=== PATIENT | female | born 1945 | race Caucasian/White ===

== ENCOUNTER 2017-05-14 11:59 | Emergency (ER) | payer OTHER ==
[~2017-05-14] VITALS: Ht 160 cm; Wt 51.3 kg
[~2017-05-14 11:59] MED LIST: ADULT LOW DOSE81 M1 PO; ALBUTEROL2.5 MG/3 M IH; AMBIEN10 MG PO; ASPERCREME 4% TP; ASPIR-LOW81 MG PO; ASPIRIN81 M2 PO; BESIVANCE5 ML RIGHT EYE; BYSTOLIC10 MG PO; BYSTOLIC20 MG PO; CEFTIN500 MG PO; CENTRUM COMPLE1 EACH PO; CENTRUM SILVER1 EAC3 PO; CIPRO500 MG PO; CIPROFLOXACIN500 M1 PO; CLARITIN-D 121 EACH PO; COLACE100 MG PO; DAILY VITAMIN1 EAC4 PO; DILAUDID2 MG PO; DILAUDID4 MG PO; DULCOLAX10 MG PR; DUONEB 2.5-0.5 M3 ML AEROSOL; DUONEB 2.5-0.5 M3 ML IH; FERROUS SULFAT325 MG PO; FLAGYL500 MG PO; FLEET ENEMA-AD118 ML PR; FOLIC ACID0.4 MG PO; FUROSEMIDE40 MG PO; IRON325 M1 PO; IRON325 MG PO; LEVAQUIN500 MG PO; LEVOFLOXACIN250 MG PO; LEVOFLOXACIN500 MG PO; LEXAPRO10 MG PO; LO-DOSE ASPIRIN81 M2 PO; LOMOTIL TABLET1 EACH PO; LOVENOX40 MG/0.4 SC; LYRICA100 MG PO; LYRICA50 MG PO; METRONIDAZOLE500 MG PO; MILK OF MAGN PO; MORPHINE SULFAT15 M1 PO; NASACORT10.8 ML BOTH NARES; OMNIPRED10 ML RIGHT EYE; OXYCONTIN20 MG PO; PERCOCET 5/31 TABLET PO; PLAVIX75 MG PO; PLETAL100 MG PO; PREDNISONE10 MG PO; PROLENSA1.6 ML RIGHT EYE; PROMETHAZINE HC25 MG PR; PROTONIX40 MG PO; PROVENTIL,2.5 MG/3 M IH; REQUIP1 MG PO; REQUIP2 MG PO; SENNA PLUS TAB1 EACH PO; SILVADENE20 GM TP; SPIRIVA RESPIMAT4 GM IH; SPIRIVA1 INHALATI IH; SPIRONOLACTONE25 MG PO; Silvadene,SSD,Therma TP; TYLENOL REGULA325 MG PO; VITAMIN B12 100MCG PO; ZOLPIDEM TARTRA10 MG PO; [UNRECOGNIZED DRUG - OTHER]
[2017-05-14 14:26] LABS: ADD MIUA? YES; BILIRUBIN NEGATIVE; BLOOD SMALL; COLOR YELLOW ((YELLOW)); GLUCOSE (STRIP) NEGATIVE; KETONES NEGATIVE; LEUKOCYTES LARGE; NITRITE NEGATIVE; PROTEIN (STRIP) NEGATIVE; UROBILINOGEN 0.2 MG/DL (0.2-1.0)
[2017-05-14 14:35] LABS: BACTERIA NONE SEEN /HPF; EPITHELIAL CELLS RARE /HPF; MUCUS TRACE /LPF; UCUL ADDED? YES; WHITE BLOOD CELLS TNTC /HPF (0-5)
[2017-05-14 15:15] LABS: HEMATOCRIT 30.3 % (36.0-46.0); MCH 25.6 PG (29.0-34.0); MCV 79.9 FL (83-99); MEAN PLAT.VOLUME 8.8 uM^3 (9.5-12.4); PLATELET COUNT 513 K/uL (156-360); RBC DIS.WIDTH-CV 17.2 % (11.8-14.6); RBC DIS.WIDTH-SD 50.2 % (39-53); RED BLOOD COUNT 3.79 M/uL (3.80-5.20); WHITE BLOOD COUNT 11.1 K/uL (4.1-10.2)
[2017-05-14 15:26] LABS: CHLORIDE 106 mEq/L (99-109); POTASSIUM 3.8 mEq/L (3.7-5.4); SODIUM 137 mEq/L (136-147)
[2017-05-14 15:28] LABS: GLUCOSE 79 mg/dL (70-99)
[2017-05-14 15:29] LABS: ANION GAP 10 MEQ/L (2-14)
[2017-05-14 15:30] LABS: TOTAL BILIRUBIN 0.3 mg/dL (0.0-1.0)
[2017-05-14 15:31] LABS: ALKALINE PHOSPHATASE 86 IU/L (3-129)
[2017-05-14 15:32] LABS: GFR ESTIMATE (CALCULATED) > 59 mL/min/
[2017-05-14 15:33] LABS: UREA NITROGEN (BUN) 17 mg/dL (9-23)
[2017-05-14] MEDS ORDERED: KEFLEX500 MG PO (16:25)
[2017-05-14] MEDS ORDERED: PYRIDIUM200 MG PO (16:25)
[2017-05-14 18:11] VITALS: BP 120/66
== END 2017-05-14 18:13 | disposition home or self-care (01) ==
LOC: EME 11:59
PROVIDERS: Nurse Practitioner Family
DX: N39.0 Urinary tract infection, site not specified (principal); D72.829 Elevated white blood cell count, unspecified; I10 Essential (primary) hypertension; E03.9 Hypothyroidism, unspecified; J44.9 Chronic obstructive pulmonary disease, unspecified; E11.9 Type 2 diabetes mellitus without complications; K21.9 Gastro-esophageal reflux disease without esophagitis; Z96.653 Presence of artificial knee joint, bilateral; Z88.1 Allergy status to other antibiotic agents; Z88.2 Allergy status to sulfonamides; Z87.891 Personal history of nicotine dependence
CPT/HCPCS: 74177; 80053; 81003; 85027; 99281; 99285; J0696; J1885; J7050

== ENCOUNTER 2017-09-10 12:22 | Emergency (ER) | payer OTHER ==
[~2017-09-10] VITALS: Ht 160 cm; Wt 49.1 kg
[~2017-09-10 12:22] MED LIST changes: +KEFLEX500 MG PO; +PYRIDIUM200 MG PO
[2017-09-10 13:19] LABS: HEMATOCRIT 31.2 % (36.0-46.0); MCH 25.7 PG (29.0-34.0); MCHC 32.1 G/DL (30.0-36.0); MCV 80.2 FL (83-99); MEAN PLAT.VOLUME 8.8 uM^3 (9.5-12.4); PLATELET COUNT 439 K/uL (156-360); RBC DIS.WIDTH-CV 17.2 % (11.8-14.6); RBC DIS.WIDTH-SD 49.7 % (39-53); RED BLOOD COUNT 3.89 M/uL (3.80-5.20); WHITE BLOOD COUNT 20.1 K/uL (4.1-10.2)
[2017-09-10 13:41] LABS: CHLORIDE 107 mEq/L (99-109); POTASSIUM 4.5 mEq/L (3.7-5.4); SODIUM 139 mEq/L (136-147)
[2017-09-10 13:42] LABS: GLUCOSE 85 mg/dL (70-99)
[2017-09-10 13:44] LABS: ANION GAP 12 MEQ/L (2-14)
[2017-09-10 13:46] LABS: GFR ESTIMATE (CALCULATED) 58 mL/min/
[2017-09-10 13:47] LABS: UREA NITROGEN (BUN) 28 mg/dL (9-23)
[2017-09-10 13:53] LABS: TROP-I INTERPRETATION NEGATIVE; TROPONIN-I < 0.01 ng/mL (0.0-0.30)
[2017-09-10] MEDS ORDERED: LORTAB 5-325 M1 EACH PO (15:16)
[2017-09-10] MEDS ORDERED: ZOFRAN4 MG PO (15:16)
[2017-09-10] MEDS ORDERED: VIBRAMYCIN100 MG PO (15:16)
[2017-09-10 15:44] VITALS: BP 111/61
[2017-09-10 15:47] LABS: ADD MIUA? NO; BILIRUBIN NEGATIVE; BLOOD NEGATIVE; COLOR YELLOW ((YELLOW)); GLUCOSE (STRIP) NEGATIVE; KETONES NEGATIVE; LEUKOCYTES NEGATIVE; NITRITE NEGATIVE; PROTEIN (STRIP) NEGATIVE; UROBILINOGEN 0.2 MG/DL (0.2-1.0)
== END 2017-09-10 15:44 | disposition home or self-care (01) ==
LOC: EME 12:22
PROVIDERS: Physician Assistant Medical
DX: M25.552 Pain in left hip (principal); S40.212A Abrasion of left shoulder, initial encounter; M25.562 Pain in left knee; M54.2 Cervicalgia; W19.XXXA Unspecified fall, initial encounter; R91.8 Other nonspecific abnormal finding of lung field; M47.896 Other spondylosis, lumbar region; M47.892 Other spondylosis, cervical region; L97.329 Non-pressure chronic ulcer of left ankle with unspecified severity; L97.319 Non-pressure chronic ulcer of right ankle with unspecified severity; L03.115 Cellulitis of right lower limb; Z96.652 Presence of left artificial knee joint; J44.9 Chronic obstructive pulmonary disease, unspecified; I10 Essential (primary) hypertension; E03.9 Hypothyroidism, unspecified; Z79.82 Long term (current) use of aspirin; Z88.0 Allergy status to penicillin; Z87.891 Personal history of nicotine dependence
CPT/HCPCS: 70450; 71010; 72125; 73030; 73502; 73560; 80048; 81003; 84484; 85027; 86850; 86900; 86901; 93005; 99281; 99284; J2270; J2405

== ENCOUNTER 2017-09-18 13:54 | Emergency (ER) | payer OTHER ==
[~2017-09-18] VITALS: Ht 160 cm; Wt 47.7 kg
[~2017-09-18 13:54] MED LIST changes: +LORTAB 5-325 M1 EACH PO; +VIBRAMYCIN100 MG PO; +ZOFRAN4 MG PO
[2017-09-18 16:20] LABS: INTER. NORMALIZED RATIO 1.3
[2017-09-18 16:23] LABS: PTT 31.7 SEC (25-37)
[2017-09-18 16:35] LABS: TROP-I INTERPRETATION NEGATIVE; TROPONIN-I 0.01 ng/mL (0.0-0.30)
[2017-09-18 17:48] LABS: HEMATOCRIT 29.1 % (36.0-46.0); HEMOGLOBIN 9.3 G/DL (11.9-15.5); MCH 25.2 PG (29.0-34.0); MCV 78.9 FL (83-99); PLATELET COUNT 537 K/uL (156-360); RBC DIS.WIDTH-CV 17.2 % (11.8-14.6); RBC DIS.WIDTH-SD 48.2 % (39-53); RED BLOOD COUNT 3.69 M/uL (3.80-5.20); WHITE BLOOD COUNT 18.3 K/uL (4.1-10.2)
[2017-09-18 17:56] LABS: CHLORIDE 102 mEq/L (99-109); SODIUM 140 mEq/L (136-147)
[2017-09-18 17:57] LABS: GLUCOSE 77 mg/dL (70-99)
[2017-09-18 18:01] LABS: GFR ESTIMATE (CALCULATED) 58 mL/min/
[2017-09-18 18:02] LABS: UREA NITROGEN (BUN) 26 mg/dL (9-23)
[2017-09-18] MEDS ORDERED: NORCO 5/3251 TABLET PO (18:57)
[2017-09-18] MEDS ORDERED: STOOL SOFTENER250 MG PO (18:57)
[2017-09-18 19:21] VITALS: BP 103/62
== END 2017-09-18 19:22 | disposition home or self-care (01) ==
LOC: EME 13:54
PROVIDERS: Emergency Medicine; Nurse Practitioner Family
DX: S72.112A Displaced fracture of greater trochanter of left femur, initial encounter for closed fracture (principal); W01.0XXA Fall on same level from slipping, tripping and stumbling without subsequent striking against object, initial encounter; D72.829 Elevated white blood cell count, unspecified; D64.9 Anemia, unspecified; J45.909 Unspecified asthma, uncomplicated; F32.9 Major depressive disorder, single episode, unspecified; J44.9 Chronic obstructive pulmonary disease, unspecified; I10 Essential (primary) hypertension; K21.9 Gastro-esophageal reflux disease without esophagitis; R56.9 Unspecified convulsions; F41.9 Anxiety disorder, unspecified; E03.9 Hypothyroidism, unspecified; Z87.891 Personal history of nicotine dependence; Z88.0 Allergy status to penicillin; Z79.82 Long term (current) use of aspirin; Z79.891 Long term (current) use of opiate analgesic
CPT/HCPCS: 72192; 73502; 80048; 83880; 84484; 85027; 85610; 85730; 93005; 99281; 99283

== ENCOUNTER 2018-03-04 09:43 | Inpatient (IN) | payer OTHER ==
[~2018-03-04] VITALS: Ht 160 cm; Wt 50.0 kg
[2018-03-04] VITALS (10 sets, daily range): BP systolic 97–135; BP diastolic 48–83
[~2018-03-04 09:43] MED LIST changes: +LEXAPRO20 MG PO; +NORCO 5/3251 TABLET PO; +PRILOSEC OTC20 MG PO; +REQUIP4 MG PO; +STOOL SOFTENER250 MG PO
[2018-03-04 10:33] LABS: BASOPHIL (%) 0.5 % (0-1); BASOPHIL COUNT 0.1 K/uL (0-0.1); EOSINOPHIL (%) 4.6 % (0-5); EOSINOPHIL COUNT 0.8 K/uL (0-0.3); HEMATOCRIT 17.9 % (36.0-46.0); HEMOGLOBIN 5.6 G/DL (11.9-15.5); IMMATURE GRANULOCYTE (%) 0.4 % (0.0-0.7); LYMPHOCYTE COUNT 4.4 K/uL (1.0-2.8); MCH 22.1 PG (29.0-34.0); MCHC 31.3 G/DL (30.0-36.0); MCV 70.8 FL (83-99); MONOCYTE (%) 6.7 % (3-12); MONOCYTE COUNT 1.1 K/uL (0-0.8); NEUTROPHIL (%) 60.8 % (45-76); PLATELET COUNT 628 K/uL (156-360); RBC DIS.WIDTH-CV 16.6 % (11.8-14.6); RBC DIS.WIDTH-SD 42.5 % (39-53); RED BLOOD COUNT 2.53 M/uL (3.80-5.20); WHITE BLOOD COUNT 16.5 K/uL (4.1-10.2)
[2018-03-04 10:36] LABS: CHLORIDE 110 mEq/L (99-109); POTASSIUM 5.5 mEq/L (3.7-5.4); SODIUM 140 mEq/L (136-147)
[2018-03-04 10:37] LABS: GLUCOSE 75 mg/dL (70-99)
[2018-03-04 10:41] LABS: CREATININE 1.9 mg/dL (0.6-1.3); GFR ESTIMATE (CALCULATED) 28 mL/min/
[2018-03-04 10:42] LABS: UREA NITROGEN (BUN) 53 mg/dL (9-23)
[2018-03-04] MEDS ORDERED: BENADRYL25 MG PO (11:41)
[2018-03-04] MEDS ORDERED: HYDROXYZINE HCL50 MG PO (11:41)
[2018-03-04] MEDS ORDERED: ADVIL,NUPRIN,M200 MG PO (11:42)
[2018-03-04] MEDS ORDERED: TRAMADOL HCL50 MG PO (11:42)
[2018-03-04] MEDS ORDERED: UNISOM SLEEP AI25 MG PO (11:44)
[2018-03-04] MEDS ORDERED: MELATONIN1 MG PO (11:44)
[2018-03-04] MEDS ORDERED: [UNRECOGNIZED DRUG - OTHER] PO (11:44)
[2018-03-04] MEDS ORDERED: HYDROCODON-ACE1 EAC7 PO (11:49)
[2018-03-04] MEDS ORDERED: LOPERAMIDE2 M1 PO (11:50)
[2018-03-04 13:23] LABS: APPEARANCE CLOUDY ((CLEAR)); BILIRUBIN NEGATIVE; BLOOD MODERATE; COLOR YELLOW ((YELLOW)); GLUCOSE (STRIP) NEGATIVE; KETONES NEGATIVE; LEUKOCYTES LARGE; NITRITE NEGATIVE; PROTEIN (STRIP) 30; SPECIFIC GRAVITY 1.014 (1.000-1.030); UROBILINOGEN 0.2 MG/DL (0.2-1.0)
[2018-03-04 13:36] LABS: RED BLOOD CELLS 15-20 /HPF (0-5); WHITE BLOOD CELLS TNTC /HPF (0-5)
[2018-03-04 13:37] LABS: BACTERIA 1+ /HPF; EPITHELIAL CELLS RARE /HPF; MUCUS RARE /LPF; UCUL ADDED? YES
[2018-03-04 18:26] LABS: HEMATOCRIT 26.7 % (36.0-46.0)
[2018-03-04 18:28] LABS: HEMOGLOBIN 8.3 G/DL (11.9-15.5); MCV 78.3 FL (83-99)
[2018-03-05 00:07] VITALS: BP 101/60
[2018-03-05 04:29] VITALS: BP 108/62
[2018-03-05 07:13] VITALS: BP 117/61
[2018-03-05 12:21] VITALS: BP 105/59
[2018-03-05 16:21] VITALS: BP 127/70
[2018-03-05 19:50] LABS: HEMATOCRIT 26.3 % (36.0-46.0); HEMOGLOBIN 8.3 G/DL (11.9-15.5); MCH 24.3 PG (29.0-34.0); MCHC 31.6 G/DL (30.0-36.0); MCV 77.1 FL (83-99); PLATELET COUNT 518 K/uL (156-360); RBC DIS.WIDTH-CV 20.9 % (11.8-14.6); RBC DIS.WIDTH-SD 57.3 % (39-53); WHITE BLOOD COUNT 15.4 K/uL (4.1-10.2)
[2018-03-05 19:57] LABS: RED BLOOD COUNT 3.41 M/uL (3.80-5.20)
[2018-03-05 19:58] LABS: BASOPHIL (%) 0.8 % (0-1); BASOPHIL COUNT 0.1 K/uL (0-0.1); EOSINOPHIL (%) 4.3 % (0-5); EOSINOPHIL COUNT 0.7 K/uL (0-0.3); IMMATURE GRANULOCYTE (%) 0.3 % (0.0-0.7); LYMPHOCYTE (%) 23.2 % (15-42); LYMPHOCYTE COUNT 3.6 K/uL (1.0-2.8); MONOCYTE (%) 7.5 % (3-12); MONOCYTE COUNT 1.2 K/uL (0-0.8); NEUTROPHIL (%) 63.9 % (45-76); NEUTROPHIL COUNT 9.9 K/uL (1.8-6.4)
[2018-03-05 20:12] LABS: CHLORIDE 108 MEQ/L (99-109); GFR ESTIMATE (CALCULATED) 40 mL/min/; GLUCOSE 71 mg/dL (70-99); POTASSIUM 4.7 MEQ/L (3.7-5.4); SODIUM 138 MEQ/L (136-147); UREA NITROGEN (BUN) 33 mg/dL (9-23)
[2018-03-05 20:13] LABS: CREATININE 1.4 MG/DL (0.6-1.3)
[2018-03-06 00:03] VITALS: BP 136/59
[2018-03-06 03:37] VITALS: BP 125/60
[2018-03-06 06:32] LABS: HEMATOCRIT 27.8 % (36.0-46.0); HEMOGLOBIN 8.7 G/DL (11.9-15.5); MCH 24.2 PG (29.0-34.0); MCHC 31.3 G/DL (30.0-36.0); MCV 77.2 FL (83-99); PLATELET COUNT 523 K/uL (156-360); RBC DIS.WIDTH-CV 21.2 % (11.8-14.6); RBC DIS.WIDTH-SD 58.1 % (39-53); WHITE BLOOD COUNT 13.8 K/uL (4.1-10.2)
[2018-03-06 06:35] VITALS: BP 128/65
[2018-03-06 06:47] LABS: ALKALINE PHOSPHATASE 87 IU/L (3-129); ALT (GPT) 8 IU/L (3-49); AST (GOT) 19 IU/L (2-34); CHLORIDE 108 MEQ/L (99-109); CREATININE 1.2 MG/DL (0.6-1.3); GFR ESTIMATE (CALCULATED) 47 mL/min/; GLUCOSE 57 mg/dL (70-99); POTASSIUM 5.4 MEQ/L (3.7-5.4); SODIUM 136 MEQ/L (136-147); TOTAL BILIRUBIN 0.5 MG/DL (0.0-1.0); TOTAL PROTEIN 7.7 G/DL (6.4-8.3); UREA NITROGEN (BUN) 28 mg/dL (9-23)
[2018-03-06 08:26] VITALS: BP 120/58
[2018-03-06 19:11] VITALS: BP 127/61
[2018-03-06 23:54] VITALS: BP 112/64
[2018-03-07 08:05] VITALS: BP 122/56
[2018-03-07 12:21] VITALS: BP 133/67
[2018-03-07 16:00] VITALS: BP 126/60
[2018-03-07 23:23] VITALS: BP 128/62
[2018-03-08 06:41] LABS: HEMATOCRIT 26.2 % (36.0-46.0); HEMOGLOBIN 8.3 G/DL (11.9-15.5); MCH 24.7 PG (29.0-34.0); MCHC 31.7 G/DL (30.0-36.0); PLATELET COUNT 457 K/uL (156-360); RBC DIS.WIDTH-CV 22.6 % (11.8-14.6); RBC DIS.WIDTH-SD 62.2 % (39-53); RED BLOOD COUNT 3.36 M/uL (3.80-5.20); WHITE BLOOD COUNT 13.6 K/uL (4.1-10.2)
[2018-03-08 07:09] LABS: CHLORIDE 110 MEQ/L (99-109); CREATININE 1.1 MG/DL (0.6-1.3); GFR ESTIMATE (CALCULATED) 52 mL/min/; GLUCOSE 68 mg/dL (70-99); POTASSIUM 4.9 MEQ/L (3.7-5.4); SODIUM 142 MEQ/L (136-147); UREA NITROGEN (BUN) 19 mg/dL (9-23)
[2018-03-08 08:57] VITALS: BP 118/61
[2018-03-09 00:03] VITALS: BP 119/58
[2018-03-09 06:24] LABS: HEMATOCRIT 29.3 % (36.0-46.0); HEMOGLOBIN 8.8 G/DL (11.9-15.5); MCH 23.8 PG (29.0-34.0); MCV 79.2 FL (83-99); PLATELET COUNT 426 K/uL (156-360); RBC DIS.WIDTH-CV 22.8 % (11.8-14.6); RBC DIS.WIDTH-SD 62.2 % (39-53); WHITE BLOOD COUNT 11.8 K/uL (4.1-10.2)
[2018-03-09 06:55] LABS: ALBUMIN 2.9 G/DL (3.2-4.8); CHLORIDE 108 MEQ/L (99-109); CREATININE 0.9 MG/DL (0.6-1.3); GFR ESTIMATE (CALCULATED) > 59 mL/min/; GLUCOSE 68 mg/dL (70-99); PHOSPHORUS 2.7 mg/dL (2.5-4.9); POTASSIUM 4.2 MEQ/L (3.7-5.4); SODIUM 139 MEQ/L (136-147); UREA NITROGEN (BUN) 12 mg/dL (9-23)
[2018-03-09 08:42] VITALS: BP 127/63
[2018-03-09 12:10] VITALS: BP 130/64
[2018-03-09 14:31] VITALS: BP 131/69
[2018-03-10 00:04] VITALS: BP 108/68
[2018-03-10 09:18] VITALS: BP 129/69
[2018-03-10 11:43] VITALS: BP 119/66
[2018-03-10 15:16] VITALS: BP 105/63
[2018-03-10 19:12] VITALS: BP 119/60
[2018-03-11 00:41] VITALS: BP 111/54
[2018-03-11 04:02] VITALS: BP 113/57
[2018-03-11 06:47] LABS: HEMATOCRIT 28.5 % (36.0-46.0); HEMOGLOBIN 8.7 G/DL (11.9-15.5); MCH 23.9 PG (29.0-34.0); MCHC 30.5 G/DL (30.0-36.0); MCV 78.3 FL (83-99); PLATELET COUNT 426 K/uL (156-360); RBC DIS.WIDTH-CV 22.8 % (11.8-14.6); RED BLOOD COUNT 3.64 M/uL (3.80-5.20); WHITE BLOOD COUNT 11.5 K/uL (4.1-10.2)
[2018-03-11 07:07] LABS: CHLORIDE 106 MEQ/L (99-109); CREATININE 0.8 MG/DL (0.6-1.3); GFR ESTIMATE (CALCULATED) > 59 mL/min/; GLUCOSE 78 mg/dL (70-99); SODIUM 138 MEQ/L (136-147); UREA NITROGEN (BUN) 12 mg/dL (9-23)
[2018-03-11 07:35] VITALS: BP 114/58
[2018-03-11 11:13] VITALS: BP 104/55
[2018-03-11 15:13] VITALS: BP 109/56
[2018-03-11] MEDS ORDERED: DOXYCYCLINE HY100 M3 PO (17:20)
== END 2018-03-11 19:30 | disposition home health service (06) | DRG 378 ==
LOC: EME 09:43 → 2EAST 12:29 → EDOF 12:29 → ENRESERV 12:59 → 2EAST 15:38 → ENPENDDIS 03-11 17:27 → 2EAST 03-11 19:30
PROVIDERS: Emergency Medicine; Family Medicine; Internal Medicine; Internal Medicine Gastroenterology
PROC: 30233N1 Transfusion of Nonautologous Red Blood Cells into Peripheral Vein, Percutaneous Approach (ICD-10-PCS; 2018-03-04)
PROC: 0DB68ZX Excision of Stomach, Via Natural or Artificial Opening Endoscopic, Diagnostic (ICD-10-PCS; principal; 2018-03-06)
PROC: 0DBN8ZX Excision of Sigmoid Colon, Via Natural or Artificial Opening Endoscopic, Diagnostic (ICD-10-PCS; 2018-03-09)
DX: K25.4 Chronic or unspecified gastric ulcer with hemorrhage (principal); N17.9 Acute kidney failure, unspecified; L03.116 Cellulitis of left lower limb; L03.115 Cellulitis of right lower limb; N39.0 Urinary tract infection, site not specified; I12.9 Hypertensive chronic kidney disease with stage 1 through stage 4 chronic kidney disease, or unspecified chronic kidney disease; I83.218 Varicose veins of right lower extremity with both ulcer of other part of lower extremity and inflammation; I83.228 Varicose veins of left lower extremity with both ulcer of other part of lower extremity and inflammation; E03.9 Hypothyroidism, unspecified; G89.29 Other chronic pain; N18.9 Chronic kidney disease, unspecified; F32.9 Major depressive disorder, single episode, unspecified; J44.9 Chronic obstructive pulmonary disease, unspecified; K21.9 Gastro-esophageal reflux disease without esophagitis; K90.0 Celiac disease; K56.600 Partial intestinal obstruction, unspecified as to cause; D50.0 Iron deficiency anemia secondary to blood loss (chronic); K57.30 Diverticulosis of large intestine without perforation or abscess without bleeding; L97.929 Non-pressure chronic ulcer of unspecified part of left lower leg with unspecified severity; L97.919 Non-pressure chronic ulcer of unspecified part of right lower leg with unspecified severity; K44.9 Diaphragmatic hernia without obstruction or gangrene; B95.7 Other staphylococcus as the cause of diseases classified elsewhere; B96.20 Unspecified Escherichia coli [E. coli] as the cause of diseases classified elsewhere; B96.89 Other specified bacterial agents as the cause of diseases classified elsewhere; I73.89 Other specified peripheral vascular diseases; Z83.3 Family history of diabetes mellitus; Z87.891 Personal history of nicotine dependence; Z85.3 Personal history of malignant neoplasm of breast; C94.6 Myelodysplastic disease, not elsewhere classified
CPT/HCPCS: 74270; 80048; 80053; 80069; 80202; 81003; 82565; 82948; 83605; 85014; 85018; 85025; 85027; 86850; 86900; 86901; 86920; 87040; 87070; 87075; 87077; 87086; 87147; 87186; 87205; 87641; 88305; 88342 TC; 99281; 99285; A6260; C9113; J0692; J0696; J1335; J1756; J1940; J2250; J3370; J7030; J7050; J7120; P9016

== ENCOUNTER → 2018-03-13 | Outpatient (CLI) | payer OTHER ==
[~2018-03-13] VITALS: Ht 157.5 cm; Wt 50.0 kg
[~2018-03-13] MED LIST changes: +ADVIL,NUPRIN,M200 MG PO; +BENADRYL25 MG PO; +DOXYCYCLINE HY100 M3 PO; +HYDROCODON-ACE1 EAC7 PO; +HYDROXYZINE HCL50 MG PO; +LOPERAMIDE2 M1 PO; +MELATONIN1 MG PO; +TRAMADOL HCL50 MG PO; +UNISOM SLEEP AI25 MG PO; +[UNRECOGNIZED DRUG - OTHER] PO
[2018-03-13 17:38] VITALS: BP 121/56
== END | disposition home or self-care (01) ==
LOC: IVINF 17:30
DX: N39.0 Urinary tract infection, site not specified (principal); B96.20 Unspecified Escherichia coli [E. coli] as the cause of diseases classified elsewhere; Z16.12 Extended spectrum beta lactamase (ESBL) resistance
CPT/HCPCS: 96365; J1335; J7050

== ENCOUNTER 2018-05-05 19:45 | Inpatient (IN) | payer OTHER ==
[~2018-05-05] VITALS: Ht 160 cm; Wt 55.4 kg
[~2018-05-05 19:45] MED LIST changes: -MELATONIN1 MG PO; +MELATONIN2.5 MG PO
[2018-05-05 20:37] LABS: HEMATOCRIT 25.4 % (36.0-46.0); HEMOGLOBIN 7.9 G/DL (11.9-15.5); MCH 26.2 PG (29.0-34.0); MCHC 31.1 G/DL (30.0-36.0); MCV 84.1 FL (83-99); PLATELET COUNT 418 K/uL (156-360); RBC DIS.WIDTH-CV 20.1 % (11.8-14.6); RBC DIS.WIDTH-SD 62.1 % (39-53); RED BLOOD COUNT 3.02 M/uL (3.80-5.20); WHITE BLOOD COUNT 17.2 K/uL (4.1-10.2)
[2018-05-05 20:44] LABS: BASOPHIL COUNT 0.2 K/uL (0-0.1); EOSINOPHIL (%) 2.1 % (0-5); EOSINOPHIL COUNT 0.4 K/uL (0-0.3); IMMATURE GRANULOCYTE (%) 0.5 % (0.0-0.7); LYMPHOCYTE (%) 30.2 % (15-42); LYMPHOCYTE COUNT 5.2 K/uL (1.0-2.8); NEUTROPHIL (%) 60.2 % (45-76); NEUTROPHIL COUNT 10.4 K/uL (1.8-6.4)
[2018-05-05 20:47] LABS: CHLORIDE 112 mEq/L (99-109); POTASSIUM 5.9 mEq/L (3.7-5.4); SODIUM 137 mEq/L (136-147)
[2018-05-05 20:53] LABS: CREATININE 2.1 mg/dL (0.6-1.3); GFR ESTIMATE (CALCULATED) 25 mL/min/
[2018-05-05 20:54] LABS: GLUCOSE 101 mg/dL (70-99); UREA NITROGEN (BUN) 70 mg/dL (9-23)
[2018-05-05] MEDS ORDERED: DONEPEZIL HCL5 MG PO (21:04)
[2018-05-05] MEDS ORDERED: ATARAX,VISTARIL50 MG PO (21:04)
[2018-05-05] MEDS ORDERED: MIRTAZAPINE15 MG PO (21:06)
[2018-05-05 21:17] LABS: ALBUMIN 3.4 g/dL (3.2-4.8)
[2018-05-05 21:20] LABS: TOTAL PROTEIN 8.4 g/dL (6.4-8.3)
[2018-05-05 21:21] LABS: TOTAL BILIRUBIN 0.3 mg/dL (0.0-1.0)
[2018-05-05 21:22] LABS: ALKALINE PHOSPHATASE 165 IU/L (3-129)
[2018-05-05 21:25] LABS: AST (GOT) 57 IU/L (2-34); DIRECT BILIRUBIN 0.1 mg/dL (0.0-0.3)
[2018-05-05 21:26] LABS: ALT (GPT) 54 IU/L (3-49); LIPASE 22 U/L (1.0-51.0)
[2018-05-05 22:35] LABS: APPEARANCE CLEAR ((CLEAR)); BILIRUBIN NEGATIVE; BLOOD SMALL; COLOR YELLOW ((YELLOW)); GLUCOSE (STRIP) NEGATIVE; KETONES NEGATIVE; LEUKOCYTES NEGATIVE; NITRITE NEGATIVE; PROTEIN (STRIP) NEGATIVE; SPECIFIC GRAVITY 1.016 (1.000-1.030); UROBILINOGEN 0.2 MG/DL (0.2-1.0)
[2018-05-05 22:52] LABS: UCUL ADDED? NO
[2018-05-05 22:55] LABS: INTER. NORMALIZED RATIO 1.2
[2018-05-05 22:57] LABS: PTT 26.4 SEC (25-37)
[2018-05-05 23:00] LABS: FERRITIN 340 NG/ML (10-291)
[2018-05-06 02:06] VITALS: BP 104/62
[2018-05-06 02:30] VITALS: BP 104/62
[2018-05-06 02:31] LABS: CHLORIDE 119 mEq/L (99-109); POTASSIUM 5.9 mEq/L (3.7-5.4); SODIUM 142 mEq/L (136-147)
[2018-05-06 02:33] LABS: GLUCOSE 83 mg/dL (70-99)
[2018-05-06 02:36] LABS: GFR ESTIMATE (CALCULATED) 34 mL/min/
[2018-05-06 02:37] LABS: UREA NITROGEN (BUN) 60 mg/dL (9-23)
[2018-05-06 02:44] LABS: CREATININE 1.6 mg/dL (0.6-1.3)
[2018-05-06 06:46] LABS: BASOPHIL (%) 0.7 % (0-1); BASOPHIL COUNT 0.1 K/uL (0-0.1); EOSINOPHIL (%) 4.9 % (0-5); EOSINOPHIL COUNT 0.7 K/uL (0-0.3); HEMATOCRIT 24.5 % (36.0-46.0); HEMOGLOBIN 7.5 G/DL (11.9-15.5); IMMATURE GRANULOCYTE (%) 0.3 % (0.0-0.7); LYMPHOCYTE (%) 31.3 % (15-42); LYMPHOCYTE COUNT 4.7 K/uL (1.0-2.8); MCH 25.8 PG (29.0-34.0); MCHC 30.6 G/DL (30.0-36.0); MCV 84.2 FL (83-99); MONOCYTE (%) 7.8 % (3-12); MONOCYTE COUNT 1.2 K/uL (0-0.8); NEUTROPHIL COUNT 8.3 K/uL (1.8-6.4); PLATELET COUNT 405 K/uL (156-360); RBC DIS.WIDTH-CV 19.9 % (11.8-14.6); RBC DIS.WIDTH-SD 62.2 % (39-53); RED BLOOD COUNT 2.91 M/uL (3.80-5.20)
[2018-05-06 07:08] LABS: ALBUMIN 3.2 G/DL (3.2-4.8); ALKALINE PHOSPHATASE 128 IU/L (3-129); ALT (GPT) 35 IU/L (3-49); AST (GOT) 31 IU/L (2-34); CHLORIDE 116 MEQ/L (99-109); CREATININE 1.4 MG/DL (0.6-1.3); GFR ESTIMATE (CALCULATED) 40 mL/min/; GLUCOSE 81 mg/dL (70-99); POTASSIUM 5.2 MEQ/L (3.7-5.4); SODIUM 140 MEQ/L (136-147); TOTAL BILIRUBIN 0.3 MG/DL (0.0-1.0); TOTAL PROTEIN 7.1 G/DL (6.4-8.3); UREA NITROGEN (BUN) 53 mg/dL (9-23)
[2018-05-06 08:06] VITALS: BP 97/52
[2018-05-06 08:36] LABS: COMMENTS - BLOOD GASES A+C+; DEVICE RA; SITE LR
[2018-05-06 08:37] LABS: BASE EXCESS -12.1 mEq/L (-3 to +3); BICARBONATE 13.9 mEq/L (22-26); CARBOXY HGB 2.3 % (0-5); METHEMOGLOBIN 0.6 % (0-1.5); PCO2 31 mm Hg (35-45); PO2 78 mm Hg (80-100); TOTAL RESP RATE 16 resp/min
[2018-05-06 08:38] LABS: pH 7.26 (7.35-7.45)
[2018-05-06 11:30] VITALS: BP 100/60
[2018-05-06 12:51] LABS: CHLORIDE 114 MEQ/L (99-109); CREATININE 1.3 MG/DL (0.6-1.3); GFR ESTIMATE (CALCULATED) 43 mL/min/; GLUCOSE 85 mg/dL (70-99); POTASSIUM 5.5 MEQ/L (3.7-5.4); SODIUM 136 MEQ/L (136-147); UREA NITROGEN (BUN) 46 mg/dL (9-23)
[2018-05-06 13:14] LABS: C DIFF TOXIN NEGATIVE (NEGATIVE)
[2018-05-06 16:37] VITALS: BP 96/54
[2018-05-06 16:50] VITALS: BP 90/40
[2018-05-06 20:27] LABS: CHLORIDE 113 MEQ/L (99-109); CREATININE 1.1 MG/DL (0.6-1.3); GFR ESTIMATE (CALCULATED) 52 mL/min/; GLUCOSE 99 mg/dL (70-99); POTASSIUM 4.5 MEQ/L (3.7-5.4); SODIUM 140 MEQ/L (136-147); UREA NITROGEN (BUN) 38 mg/dL (9-23)
[2018-05-07] VITALS (13 sets, daily range): BP systolic 100–125; BP diastolic 52–78
[2018-05-07 05:41] LABS: BASOPHIL (%) 0.8 % (0-1); BASOPHIL COUNT 0.1 K/uL (0-0.1); EOSINOPHIL (%) 3.8 % (0-5); EOSINOPHIL COUNT 0.5 K/uL (0-0.3); HEMATOCRIT 19.7 % (36.0-46.0); IMMATURE GRANULOCYTE (%) 0.4 % (0.0-0.7); LYMPHOCYTE COUNT 3.2 K/uL (1.0-2.8); MCH 26.4 PG (29.0-34.0); MCV 82.4 FL (83-99); MONOCYTE (%) 8.5 % (3-12); NEUTROPHIL (%) 59.5 % (45-76); NEUTROPHIL COUNT 7.1 K/uL (1.8-6.4); PLATELET COUNT 352 K/uL (156-360); RBC DIS.WIDTH-CV 19.4 % (11.8-14.6); RBC DIS.WIDTH-SD 59.1 % (39-53); RED BLOOD COUNT 2.39 M/uL (3.80-5.20)
[2018-05-07 05:51] LABS: HEMOGLOBIN 6.3 G/DL (11.9-15.5)
[2018-05-07 06:29] LABS: CHLORIDE 107 MEQ/L (99-109); GFR ESTIMATE (CALCULATED) 58 mL/min/; GLUCOSE 81 mg/dL (70-99); POTASSIUM 4.4 MEQ/L (3.7-5.4); SODIUM 138 MEQ/L (136-147); UREA NITROGEN (BUN) 29 mg/dL (9-23)
[2018-05-07 15:18] LABS: HEMATOCRIT 26.3 % (36.0-46.0)
[2018-05-07 15:27] LABS: HEMOGLOBIN 8.3 G/DL (11.9-15.5)
[2018-05-07 15:28] LABS: IRON 29 MCG/DL (35-150); TRANSFERRIN (TIBC) 135.5 mg/dL (215-380); TRANSFERRIN SATUR. 21 % (20-55)
[2018-05-07 15:44] LABS: FERRITIN 321 NG/ML (10-291)
[2018-05-07 22:13] LABS: STOOL OCCULT BLD 1ST SPECIMEN POSITIVE
[2018-05-08 00:27] VITALS: BP 110/65
[2018-05-08 00:58] LABS: HEMATOCRIT 28.3 % (36.0-46.0); HEMOGLOBIN 9.4 G/DL (11.9-15.5); MCV 81.6 FL (83-99)
[2018-05-08 03:35] VITALS: BP 110/65
[2018-05-08 07:19] VITALS: BP 114/65
[2018-05-08 09:22] LABS: HEMATOCRIT 32.7 % (36.0-46.0); HEMOGLOBIN 10.7 G/DL (11.9-15.5); MCV 81.5 FL (83-99)
[2018-05-08 11:14] VITALS: BP 118/69
[2018-05-08 15:16] VITALS: BP 115/63
[2018-05-08 15:47] LABS: HEMATOCRIT 30.1 % (36.0-46.0); HEMOGLOBIN 9.9 G/DL (11.9-15.5); MCV 81.6 FL (83-99)
[2018-05-08 19:29] VITALS: BP 119/67
[2018-05-09] VITALS: BP 125/70
[2018-05-09 00:17] LABS: STOOL OCCULT BLD 1ST SPECIMEN POSITIVE
[2018-05-09 04:00] VITALS: BP 111/73; BP 113/67
[2018-05-09 05:18] LABS: BASOPHIL (%) 0.6 % (0-1); BASOPHIL COUNT 0.1 K/uL (0-0.1); EOSINOPHIL (%) 2.2 % (0-5); EOSINOPHIL COUNT 0.3 K/uL (0-0.3); HEMATOCRIT 28.1 % (36.0-46.0); HEMOGLOBIN 9.3 G/DL (11.9-15.5); IMMATURE GRANULOCYTE (%) 0.4 % (0.0-0.7); LYMPHOCYTE (%) 20.6 % (15-42); LYMPHOCYTE COUNT 2.8 K/uL (1.0-2.8); MCHC 33.1 G/DL (30.0-36.0); MCV 81.7 FL (83-99); MONOCYTE (%) 6.9 % (3-12); NEUTROPHIL (%) 69.3 % (45-76); NEUTROPHIL COUNT 9.5 K/uL (1.8-6.4); PLATELET COUNT 333 K/uL (156-360); RBC DIS.WIDTH-SD 51.1 % (39-53); WHITE BLOOD COUNT 13.7 K/uL (4.1-10.2)
[2018-05-09 05:21] LABS: RED BLOOD COUNT 3.44 M/uL (3.80-5.20)
[2018-05-09 05:46] LABS: CHLORIDE 103 MEQ/L (99-109); CREATININE 0.9 MG/DL (0.6-1.3); GFR ESTIMATE (CALCULATED) > 59 mL/min/; GLUCOSE 77 mg/dL (70-99); LACTATE DEHYDROGENASE 109 IU/L (20-246); POTASSIUM 3.9 MEQ/L (3.7-5.4); SODIUM 139 MEQ/L (136-147); UREA NITROGEN (BUN) 13 mg/dL (9-23)
[2018-05-09 07:13] VITALS: BP 119/62
[2018-05-09 11:09] VITALS: BP 101/57
[2018-05-09 15:08] VITALS: BP 99/56
[2018-05-09 23:23] VITALS: BP 111/64
[2018-05-10 05:53] LABS: HEMATOCRIT 27.7 % (36.0-46.0); HEMOGLOBIN 9.1 G/DL (11.9-15.5); MCHC 32.9 G/DL (30.0-36.0); MCV 82.2 FL (83-99); PLATELET COUNT 327 K/uL (156-360); RBC DIS.WIDTH-CV 17.2 % (11.8-14.6); RBC DIS.WIDTH-SD 51.8 % (39-53); RED BLOOD COUNT 3.37 M/uL (3.80-5.20); WHITE BLOOD COUNT 12.6 K/uL (4.1-10.2)
[2018-05-10 07:07] VITALS: BP 124/59
[2018-05-10 15:10] VITALS: BP 131/71
[2018-05-10 23:44] VITALS: BP 117/64
[2018-05-11 00:02] LABS: STOOL OCCULT BLD 1ST SPECIMEN NEGATIVE
[2018-05-11 05:52] LABS: HEMATOCRIT 27.5 % (36.0-46.0); HEMOGLOBIN 8.7 G/DL (11.9-15.5); MCH 26.3 PG (29.0-34.0); MCHC 31.6 G/DL (30.0-36.0); MCV 83.1 FL (83-99); PLATELET COUNT 342 K/uL (156-360); RBC DIS.WIDTH-SD 52.2 % (39-53); RED BLOOD COUNT 3.31 M/uL (3.80-5.20); WHITE BLOOD COUNT 11.4 K/uL (4.1-10.2)
[2018-05-11 07:15] VITALS: BP 114/65
[2018-05-11] MEDS ORDERED: PANTOPRAZOLE SO40 MG PO (12:18)
[2018-05-11] MEDS ORDERED: CIPRO250 MG PO (12:19)
[2018-05-11] MEDS ORDERED: FLAGYL500 MG PO (12:19)
== END 2018-05-11 16:23 | disposition home or self-care (01) | DRG 872 ==
LOC: EME 19:45 → 4EAST 21:30 → EDOF 21:30 → 5SOUTH 21:30 → ENRESERV 21:37 → 4EAST 05-06 01:33 → ENRESERV 05-07 10:06 → 5SOUTH 05-07 15:48
PROVIDERS: Hospitalist; Internal Medicine; Physician Assistant; Specialist
PROC: 30253N1 (ICD-10-PCS; 2018-05-07)
PROC: 0DJ08ZZ Inspection of Upper Intestinal Tract, Via Natural or Artificial Opening Endoscopic (ICD-10-PCS; principal; 2018-05-10)
DX: A41.9 Sepsis, unspecified organism (principal); N17.9 Acute kidney failure, unspecified; J44.0 Chronic obstructive pulmonary disease with (acute) lower respiratory infection; J98.11 Atelectasis; E87.2 Acidosis; R65.20 Severe sepsis without septic shock; I12.9 Hypertensive chronic kidney disease with stage 1 through stage 4 chronic kidney disease, or unspecified chronic kidney disease; N18.9 Chronic kidney disease, unspecified; K29.70 Gastritis, unspecified, without bleeding; E03.9 Hypothyroidism, unspecified; D46.9 Myelodysplastic syndrome, unspecified; E86.0 Dehydration; K29.60 Other gastritis without bleeding; K80.20 Calculus of gallbladder without cholecystitis without obstruction; F03.90 Unspecified dementia, unspecified severity, without behavioral disturbance, psychotic disturbance, mood disturbance, and anxiety; K21.9 Gastro-esophageal reflux disease without esophagitis; N73.9 Female pelvic inflammatory disease, unspecified; E87.5 Hyperkalemia; K28.9 Gastrojejunal ulcer, unspecified as acute or chronic, without hemorrhage or perforation; M54.5 Low back pain; F32.9 Major depressive disorder, single episode, unspecified; R19.7 Diarrhea, unspecified; Z88.6 Allergy status to analgesic agent; Z85.3 Personal history of malignant neoplasm of breast; Z87.440 Personal history of urinary (tract) infections; Z88.1 Allergy status to other antibiotic agents; Z88.2 Allergy status to sulfonamides; Z88.8 Allergy status to other drugs, medicaments and biological substances; Z79.899 Other long term (current) drug therapy; Z87.891 Personal history of nicotine dependence; Z90.49 Acquired absence of other specified parts of digestive tract
CPT/HCPCS: 36600; 49406; 71045; 71046; 74176; 80048; 80048 91; 80053; 80076; 81003; 82272; 82728; 83010 90; 83540; 83605; 83615; 83630; 83690; 84466; 85014; 85018; 85025; 85025 91; 85027; 85610; 85730; 86850; 86900; 86901; 86920; 87040; 87070; 87086; 87177; 87205; 87449; 87493; 87641; 93005; 99281; 99285; A6214; C1753; C9113; J0692; J0696; J1335; J2405; J3010; J3370; J7030; J7050; J7070; P9016; S0030